=== PATIENT | female | born 1990 | race Caucasian/White ===

== ENCOUNTER → 2022-06-28 15:39 | Outpatient (CLI) | payer OTHER, SELFPAY ==
--- NOTE | 2022-06-28 15:49 | DI.CT.S_ITS ---
PROCEDURE: CT HEAD/BRAIN WO CON INDICATIONS: Explosive headache w/ orgasms x 1 week TECHNIQUE: Noncontrast 4.5 mm thick angled axial sections acquired from the foramen magnum to the vertex, with coronal and sagittal reformats. For radiation dose reduction, the following was used: automated exposure control, adjustment of mA and/or kV according to patient size. COMPARISON: None. FINDINGS: Image quality: Excellent. CSF spaces: Basal cisterns are patent. No extra-axial fluid collections. Ventricles are normal in size and shape. Brain: No midline shift. No intracranial masses or hemorrhage. Peralta-white matter interface is normal. Skull and face: Calvarium and visualized facial bones are intact, without suspicious lesions. Sinuses: Visualized sinuses and mastoids are clear. IMPRESSION: No acute intracranial hemorrhage is seen. No acute intracranial process is seen. In this patient with this given history, please consider a follow-up MR angiogram to evaluate for intracranial aneurysm (assuming that there is no contraindication). Dictated by: Patricio Walton M.D. on 06/28/2022 at 15:03 Approved by: Patricio Walton M.D. on 06/28/2022 at 15:04
== END ==
PROVIDERS: PCP Physician Assistant; Referring Provider Physician Assistant; Visit Provider Physician Assistant
DX: G44.82 Headache associated with sexual activity (principal)
CPT/HCPCS: 70450

== ENCOUNTER → 2022-07-14 12:35 | Outpatient (CLI) | payer OTHER, SELFPAY ==
--- NOTE | 2022-07-14 12:36 | DI.MRI.S_ITS ---
PROCEDURE: MR ANGIO HEAD WO CON INDICATIONS: new onset explosive headache TECHNIQUE: Noncontrast axial 3-D [id number] MR angiogram, with 3-dimensional maximum intensity projection (MIP) reformats COMPARISON: None. FINDINGS: Image quality: Excellent. Anterior circulation: Intracranial internal carotid arteries demonstrate normal size and intraluminal flow signal. The flow within the paired anterior cerebral arteries is normal and symmetric. The flow within the middle cerebral arteries is normal and symmetric. The anterior communicating artery is seen. No stenoses, occlusions, or aneurysms. Posterior circulation: Visualized portions of the vertebral arteries demonstrate normal caliber, and join to form a normal appearing basilar artery. The flow within the posterior cerebral arteries is normal and symmetric. No stenoses, occlusions, or aneurysms. IMPRESSION: Normal MR angiogram of the brain Approved by: Devin Colon M.D. on 07/14/2022 at 13:29
== END ==
PROVIDERS: PCP Physician Assistant; Referring Provider Physician Assistant; Visit Provider Physician Assistant
DX: G44.82 Headache associated with sexual activity (principal); Z82.0 Family history of epilepsy and other diseases of the nervous system
CPT/HCPCS: 70544

== ENCOUNTER → 2023-09-13 13:34 | Outpatient (CLI) | payer OTHER, SELFPAY ==
[2023-09-13 19:13] LABS: Add Manual Diff / Slide Review NO; Basophils Absolute Auto 100 /uL (0-100); Basophils Percent Auto 0.9 % (0-2); Eosinophils Absolute Auto 300 /uL (0-450); Hematocrit 40.3 % (36-46); Hemoglobin 14.2 g/dL (12.0-16.0); Lymphocytes Absolute Auto 2800 /uL (1100-4500); Lymphocytes Percent Auto 33.1 % (25-40); Mean Corpuscular HGB Conc 35.2 % (30-36); Mean Corpuscular Hemoglobin 32.6 PG (26-34); Mean Corpuscular Volume 92.5 fL (80-100); Monocytes Absolute Auto 800 /uL (0-900); Monocytes Percent Auto 8.9 % (3-14); Neutrophils Absolute Auto 4600 /uL (1500-7000); Neutrophils Percent Auto 54.1 % (50-75); Platelet Count 366 X10^3/uL (150-400); Red Blood Cell Count 4.35 X10^6/uL (4.0-5.2); Red Cell Distribution Width 12.3 % (11.6-14.8); White Blood Cell Count 8.5 X10^3/uL (4.5-11.0)
[2023-09-13 19:42] LABS: Alanine Aminotransferase 16 IU/L (<35); Albumin 4.1 g/dL (3.5-5.0); Albumin Globulin Ratio 1.5 (1.0-2.8); Alkaline Phosphatase 56 U/L (38-126); Aspartate Aminotransferase 25 IU/L (14-36); BUN Creatinine Ratio 21.1 (6-22); Bilirubin Total 0.5 mg/dL (0.2-1.3); Blood Urea Nitrogen 12 mg/dL (7-17); Calcium 9.4 mg/dL (8.4-10.2); Carbon Dioxide 26 mmol/L (22-32); Chloride 105 mmol/L (98-107); Estimated Glomerular Filt Rate > 60 mL/min (>60); Globulin 2.7 g/dL (1.7-4.1); Glucose 104 mg/dL (70-100); HEMOLYSIS < 15 (0-50); Potassium 4.3 mmol/L (3.4-5.1); Sodium 139 mmol/L (137-145); Total Protein 6.8 g/dL (6.3-8.2)
[2023-09-13 20:13] LABS: TSH w/ Reflex to FT4 1.09 uIU/mL (0.47-4.68)
[2023-09-14 16:25] LABS: Hepatitis B Surface Antigen NEGATIVE s/c (NEGATIVE)
[2023-09-14 16:39] LABS: HIV 1 & 2 Ab/Ag 4th Gen Combo NEGATIVE (NEGATIVE); Hep C Virus Ab w/Reflex Quant NEGATIVE s/c (NEGATIVE)
[2023-09-15 03:37] LABS: RPR Screen Non Reactive (Non Reactive)
== END ==
PROVIDERS: PCP Physician Assistant; Visit Provider Physician Assistant
DX: Z11.3 Encounter for screening for infections with a predominantly sexual mode of transmission (principal); F41.9 Anxiety disorder, unspecified; Z86.59 Personal history of other mental and behavioral disorders
CPT/HCPCS: 80053; 84443; 85025; 86592; 86803; 87340; 87389

== ENCOUNTER → 2024-01-28 09:33 | Outpatient (CLI) | payer OTHER, MEDICAID, SELFPAY | PROVIDERS: PCP Physician Assistant; Visit Provider Physician Assistant | DX: R35.0 Frequency of micturition (principal) | CPT/HCPCS: 87086 ==

== ENCOUNTER 2024-12-12 13:45 | Outpatient (RCR) | payer OTHER, SELFPAY ==
--- NOTE | 2024-10-08 13:35 | PT.OIE ---
Current Diagnoses Pelvic muscle wasting (10/08/24) Other female genital prolapse (10/08/24) Encounter for routine follow-up (10/08/24) Past Medical History (Last Updated 06/29/22 @ 18:33 by Erika Arreola) Abnormal Pap smear of cervix (~2008) Anxiety (~2002) Chicken pox (~1991) Depression (~2002) History of bipolar disorder History of bulimia Past Surgical History History of third molar tooth extraction Visit Care Team Role Provider Type Zohreh Mathew PA-C Attending Provider Advanced Gse Mechanic Family Provider Primary Care Provider Referring Provider Specialty: Medical Address: [address] [place] [address], [id number] Email: [email or web address] Physical Therapy Initial Evaluation PT-OP-A Visit Information Start: 10/08/24 08:54 Freq: Status: Active Protocol: Document 10/08/24 13:51 [facility] (Rec: 10/08/24 14:15 [facility] [id number]) Out-Patient Physical Therapy Visit Information Visit Information Visit Type Initial Evaluation Visit Start Time 13:50 Visit Stop Time 14:30 Visit Number 1 PT-OP-B Current Condition Start: 10/08/24 08:54 Freq: Status: Active Protocol: Document 10/08/24 13:45 [facility] (Rec: 10/08/24 14:15 [facility] [id number]) Current Condition History of Current Condition Onset Date after the of her baby 6 weeks ago Current Complaints pelvic heaviness and pressure that is worse with activity History of Current Condition 6 weeks post , pt reports she started feeling symptoms of pelvic pressure and heaviness at 2 weeks post . She reports her baby had shoulder dystocia and middle school reading teacher had to reach in during to assist and this did cause difficulty with delivery . Pt notes she did tear however it was felt she did not require stitches. With activity if she goes up hill with stroller she is aware of heaviness and if she wears her baby in a front pack there is increased heaviness. Vania reports she did feel pelvic pressure at the end of her Treatment Goals Patient/Caregiver Goals Treatment goals include learning what exercises are safe to do that won't create downward pressure and decreasing complaints of pelvic pressure and heaviness. Vania would also like to prevent any further prolapse PT-OP-I Pelvic Floor Start: 10/08/24 08:54 Freq: Status: Active Protocol: Document 10/08/24 13:45 [facility] BEDS AT THE [facility] (Rec: 10/08/24 17:12 COUNTS INCLUDE 234 BEDS AT THE [facility] [id number]) Pelvic Floor Assessment Urine Pelvic Floor Surgery No: vagianl with shoulder dystocia Urinary Symptoms Falling Out Feeling/Heavy Pelvic Clock Pelvic Clock 12-3 Atrophy Pelvic Clock 3-6 Atrophy Pelvic Clock 6-9 Atrophy Pelvic Clock 9-12 Atrophy Pelvic Clock Other atrophy and swelling noted primarily over the rectum Prolapse Rectocele Grade 1 Perineal Descent Resting Present Contraction Ability Voluntary Contraction Weak Manual Muscle Testing Left 2 Manual Muscle Testing Right 2 Manual Muscle Testing Anterior 1 Manual Muscle Testing Posterior 2 Muscle Endurance (Seconds) 4 Comments Pelvic Floor Comments scar tissue is noted over the perineum more so on the left side and it is tender to palpation over the perineum, when pt contracts pelvic floor visually I can see the left side anchored down a bit as compared to the right side PT-OP-J Posture/Palpation/Skin Start: 10/08/24 08:54 Freq: Status: Active Protocol: Document 10/08/24 13:45 COUNTS INCLUDE 234 BEDS AT THE [facility] (Rec: 10/09/24 13:32 COUNTS INCLUDE 234 BEDS AT THE [facility] [id number]) Palpation Assessment Location perineum Palpation Findings Soft Tissue Tightness Palpation Details scar tissue restrictions PT-OP-Q Treatments Start: 10/08/24 08:54 Freq: Status: Active Protocol: Document 10/08/24 17:03 COUNTS INCLUDE 234 BEDS AT THE [facility] (Rec: 10/08/24 17:05 COUNTS INCLUDE 234 BEDS AT THE [facility] [id number]) Therapeutic Exercises Supine Exercises pelvic floor long holds Reps/Minutes 5 second hold and 10 second rest Comments pt to start with 1 time per day and work up to 2-3 times per day Self-Care/Home Management Treatment Education Patient Education Home Exercise Program,Pain Management Other Education pt was educated on pelvic decompression using a wedge and this felt good to her, she was educated that she could do her exercises in this position pt was given a size xs dilator for self scar tissue mobilization as the left side of the perineum is adhered some and pulling to the left PT-OP-T Assessment and Plan Start: 10/08/24 08:54 Freq: Status: Active Protocol: Document 10/08/24 13:45 COUNTS INCLUDE 234 BEDS AT THE [facility] (Rec: 10/08/24 17:36 COUNTS INCLUDE 234 BEDS AT THE [facility] [id number]) Physical Therapy Assessment Rehab Potential Rehabilitation Potential Excellent Evaluation Complexity Number of Personal Factors/Comorbidities 0 Number of Body Systems Impaired 1-2 Clinical Presentation at Evaluation Stable Impairments Impairments Activity Tolerance,Functional Activities,Pain,Soft Tissue Mobility,Strength Other Impairments pelvic pressure and heaviness Goals 3 Impairment Decreased endurance of the pelvic floor Short Term Goal (STG) Vania is able to sustain a pelvic floor contraction in supine x 10 seconds STG Duration 4 weeks Fdc Goal (LTG) Vania is able to sustain a pelvic floor contraction in standing x 5 seconds or better LTG Duration 12 weeks 2 Impairment pelvic floor weakness Fdc Goal (LTG) Vania presents with improved pelvic floor strength to 3/5 MMT or better for all miller of the levator ani LTG Duration 12 weeks 1 Impairment pt reports pelvic pressure and heaviness that increases as the day progresses and with pushing a stroller or walking with her baby in a carrier Material Handler Goal (LTG) Vania reports a overall reduction of pelvic pressure and heaviness LTG Duration 12 weeks Assessment Summary Assessment Nicolasa is a 34 year old female who is 6 weeks with complaints of pelvic pressure and heaviness. She notes her baby had shoulder dystocia and needed manual assist for delivery. Approx 2 weeks post Vania started feeling pelvic pressure and heaviness. She notes symtoms are worse with activity and walking pusing a stroller. She also reports increased symptoms with carrying her baby in a front pack. She seeks PT for pelvic floor strengthening and would like to learn what is a safe activity level for her at this time With evaluation her skin appears well healed. There is tenderness to palpation over the perineum with some scaring noted on the left side. With pelvic floor contraction the left side of the perineum is anchored down with scar tissue . Vania would benefit from perineal scar tissue massage and she was given a size xs dilator to use to help with scar mobilization. With levator ani exam there is a 1st degree rectocele and atrophy especially over the posterior wall of the levator ani. She tests 2/5 MMT for the posterior and lateral miller and 1/5 MMT for the anterior wall of the levator ani. She is limited with endurance of a few seconds only. Vania is a good candidate for Pelvic floor PT and our goal will be to decrease scar tissue and improve both strength and endurance of the pelvic floor. Physical Therapy Plan Frequency and Duration Frequency of Treatment 1x/Week Duration of treatment (weeks) 12 Plan of Care Start Date 10/08/24 Plan of Care End Date 12/31/24 Therapeutic Interventions Therapeutic Interventions Home Exercise Program,Manual Therapy,Neuromuscular Re- education,Patient/Caregiver Education,Self-Care/Home Management,Soft Tissue Mobilization,Therapeutic Exercises Modalities Biofeedback
--- NOTE | 2024-10-08 13:35 | PT.OPPOC ---
Physical, Occupational & Speech Therapy At [facility] Current Diagnoses Pelvic muscle wasting (10/08/24) Other female genital prolapse (10/08/24) Encounter for routine follow-up (10/08/24) Visit Care Team Role Provider Type Zohreh Mathew PA-C Attending Provider Advanced [place] Operator Family Provider Primary Care Provider Referring Provider Specialty: Medical Address: [address] [place] [address], [id number] Email: [email or web address] Plan Of Care PT-OP-B Current Condition Start: 10/08/24 08:54 Freq: Status: Active Protocol: Document 10/08/24 13:45 [facility] (Rec: 10/08/24 14:15 [facility] [id number]) Current Condition History of Current Condition Onset Date after the of her baby 6 weeks ago Current Complaints pelvic heaviness and pressure that is worse with activity History of Current Condition 6 weeks post , pt reports she started feeling symptoms of pelvic pressure and heaviness at 2 weeks post . She reports her baby had shoulder dystocia and mid level project manager had to reach in during to assist and this did cause difficulty with delivery . Pt notes she did tear however it was felt she did not require stitches. With activity if she goes up hill with stroller she is aware of heaviness and if she wears her baby in a front pack there is increased heaviness. Vania reports she did feel pelvic pressure at the end of her Treatment Goals Patient/Caregiver Goals Treatment goals include learning what exercises are safe to do that won't create downward pressure and decreasing complaints of pelvic pressure and heaviness. Vania would also like to prevent any further prolapse PT-OP-T Assessment and Plan Start: 10/08/24 08:54 Freq: Status: Active Protocol: Document 10/08/24 13:45 [facility] (Rec: 10/08/24 17:36 [facility] [id number]) Physical Therapy Assessment Rehab Potential Rehabilitation Potential Excellent Evaluation Complexity Number of Personal Factors/Comorbidities 0 Number of Body Systems Impaired 1-2 Clinical Presentation at Evaluation Stable Impairments Impairments Activity Tolerance,Functional Activities,Pain,Soft Tissue Mobility,Strength Other Impairments pelvic pressure and heaviness Goals 3 Impairment Decreased endurance of the pelvic floor Short Term Goal (STG) Vania is able to sustain a pelvic floor contraction in supine x 10 seconds STG Duration 4 weeks Installation Specialist Goal (LTG) Vania is able to sustain a pelvic floor contraction in standing x 5 seconds or better LTG Duration 12 weeks 2 Impairment pelvic floor weakness Long-Term Goal (LTG) Vania presents with improved pelvic floor strength to 3/5 MMT or better for all miller of the levator ani LTG Duration 12 weeks 1 Impairment pt reports pelvic pressure and heaviness that increases as the day progresses and with pushing a stroller or walking with her baby in a carrier Installation Specialist Goal (LTG) Vania reports a overall reduction of pelvic pressure and heaviness LTG Duration 12 weeks Assessment Summary Assessment Nicolasa is a 34 year old female who is 6 weeks with complaints of pelvic pressure and heaviness. She notes her baby had shoulder dystocia and needed manual assist for delivery. Approx 2 weeks post Vania started feeling pelvic pressure and heaviness. She notes symptoms are worse with activity and walking pushing a stroller. She also reports increased symptoms with carrying her baby in a front pack. She seeks PT for pelvic floor strengthening and would like to learn what is a safe activity level for her at this time With evaluation her skin appears well healed. There is tenderness to palpation over the perineum with some scaring noted on the left side. With pelvic floor contraction the left side of the perineum is anchored down with scar tissue . Vania would benefit from perineal scar tissue massage and she was given a size xs dilator to use to help with scar mobilization. With levator ani exam there is a 1st degree rectocele and atrophy especially over the posterior wall of the levator ani. She tests 2/5 MMT for the posterior and lateral miller and 1/5 MMT for the anterior wall of the levator ani. She is limited with endurance of a few seconds only. Vania is a good candidate for Pelvic floor PT and our goal will be to decrease scar tissue and improve both strength and endurance of the pelvic floor. Physical Therapy Plan Frequency and Duration Frequency of Treatment 1x/Week Duration of treatment (weeks) 12 Plan of Care Start Date 10/08/24 Plan of Care End Date 12/31/24 Therapeutic Interventions Therapeutic Interventions Home Exercise Program,Manual Therapy,Neuromuscular Re- education,Patient/Caregiver Education,Self-Care/Home Management,Soft Tissue Mobilization,Therapeutic Exercises Modalities Biofeedback Plan of Care Dates Plan of Care Start Date 10/08/24 Plan of Care End Date 12/31/24 Electronically Signed by: Shawanda Doe, PT 10/09/24 0118 If you are in agreement with this Plan of Care, please return a signed and dated copy. I have reviewed this Plan of Care and certify that the skilled therapy services above are required to meet the patient?s needs. Physician Signature Date Printed Name and Credentials Clinical Instructor Signature Printed Name and Credentials
--- NOTE | 2024-11-12 13:35 | PT.OTN ---
Current Diagnoses Pelvic muscle wasting (11/12/24) Other female genital prolapse (11/12/24) Encounter for routine follow-up (11/12/24) Physical Therapy Treatment Note PT-OP-A Visit Information Start: 10/08/24 08:54 Freq: Status: Active Protocol: Document 11/12/24 11:43 [facility] (Rec: 11/12/24 12:26 [facility] [id number]) Out-Patient Physical Therapy Visit Information Visit Information Visit Type Treatment Note Visit Start Time 11:40 Visit Stop Time 12:20 Visit Number 2 PT-OP-B Current Condition Start: 10/08/24 08:54 Freq: Status: Active Protocol: Document 10/08/24 13:45 [facility] (Rec: 10/08/24 14:15 [facility] [id number]) Current Condition History of Current Condition Onset Date after the of her baby 6 weeks ago Current Complaints pelvic heaviness and pressure that is worse with activity History of Current Condition 6 weeks post , pt reports she started feeling symptoms of pelvic pressure and heaviness at 2 weeks post . She reports her baby had shoulder dystocia and ice cutter had to reach in during birith to assist and this did cause difficulty with delivery . Pt notes she did tear however it was felt she did not require stitches. With activity if she goes up hill with stroller she is aware of heaviness and if she wears her baby in a front pack there is increased heaviness. Vania reports she did feel pelvic pressure at the end of her Treatment Goals Patient/Caregiver Goals Treatment goals include learning what exercises are safe to do that won't create downward pressure and decreasing complaints of pelvic pressure and heaviness. Vania would also like to prevent any further prolapse PT-OP-C Subjective Start: 10/08/24 08:54 Freq: Status: Active Protocol: Document 11/12/24 11:43 [facility] (Rec: 11/12/24 12:26 [facility] [id number]) OP-PT Subjective Patient Comments Patient Comments pt notes she is working on fitting in her pelvic floor and she has been using her finger instead of the wand and she has felt release of the scar tissue She hasn't felt as much heaviness and she has been doing a lot of yoga Patient Reported Progress Improving PT-OP-I Pelvic Floor Start: 10/08/24 08:54 Freq: Status: Active Protocol: Document 10/08/24 13:45 [facility] (Rec: 10/08/24 17:12 [facility] [id number]) Pelvic Floor Assessment Urine Pelvic Floor Surgery No: vagianl with shoulder dystocia Urinary Symptoms Falling Out Feeling/Heavy Pelvic Clock Pelvic Clock 12-3 Atrophy Pelvic Clock 3-6 Atrophy Pelvic Clock 6-9 Atrophy Pelvic Clock 9-12 Atrophy Pelvic Clock Other atrophy and swelling noted primarily over the rectum Prolapse Rectocele Grade 1 Perineal Descent Resting Present Contraction Ability Voluntary Contraction Weak Manual Muscle Testing Left 2 Manual Muscle Testing Right 2 Manual Muscle Testing Anterior 1 Manual Muscle Testing Posterior 2 Muscle Endurance (Seconds) 4 Comments Pelvic Floor Comments scar tissue is noted over the perineum more so on the left side and it is tender to palpation over the perineum, when pt contracts pelvic floor visually I can see the left side anchored down a bit as compared to the right side PT-OP-J Posture/Palpation/Skin Start: 10/08/24 08:54 Freq: Status: Active Protocol: Document 10/08/24 13:45 [facility] (Rec: 10/09/24 13:32 [facility] [id number]) Palpation Assessment Location perineum Palpation Findings Soft Tissue Tightness Palpation Details scar tissue restrictions PT-OP-Q Treatments Start: 10/08/24 08:54 Freq: Status: Active Protocol: Document 11/12/24 11:43 [facility] (Rec: 11/12/24 12:26 [facility] [id number]) Therapeutic Exercises Supine Exercises pelvic floor long holds Supine Exercise Name 14.8 and 41.6 Comments able to relax to baseline Sitting Exercises seated pelvic floor isolations Reps/Minutes x 5 sec holds Standing Exercises pelvic floor contractions Standing Exercise Name verage 6 and max of 14.1 uv Reps/Minutes x 10 reps Self-Care/Home Management Treatment Education Patient Education Home Exercise Program,Pain Management Other Education pt educated on progression of HEP and poise impressas for bladder supports. Vania would like to return to running and we discussed progression from 1 mile initially, she is able to walk x 4 miles. PT-OP-T Assessment and Plan Start: 10/08/24 08:54 Freq: Status: Active Protocol: Document 11/12/24 11:43 [facility] (Rec: 11/12/24 12:26 [facility] [id number]) Physical Therapy Assessment Assessment Summary Assessment Vania is making good progress with pelvic floor recruitment. She is feeling decreased tension from the perineum and is demonstrating improved contraction intensity as well as pelvic floor endurance. She would like to return to running and we did discuss options of bladder supports for her today. We discussed slowly returning to short distance runs Physical Therapy Plan Frequency and Duration Frequency of Treatment 1x/Week Duration of treatment (weeks) 12 Plan of Care Start Date 10/08/24 Plan of Care End Date 12/31/24 Next Visit Focus/Plan Next Note Type Treatment Note Next Visit Plan continue working on pelvic floor progression, begin TA activation and check in with how the perineum is feeling. PT would like to try running so check in on how a short distance went
--- NOTE | 2024-12-12 14:37 | PT.OTN ---
Current Diagnoses Pelvic muscle wasting (12/12/24) Other female genital prolapse (12/12/24) Encounter for routine follow-up (12/12/24) Physical Therapy Treatment Note PT-OP-A Visit Information Start: 10/08/24 08:54 Freq: Status: Active Protocol: Document 12/12/24 13:53 [facility] (Rec: 12/12/24 14:12 [facility] [id number]) Out-Patient Physical Therapy Visit Information Visit Information Visit Type Treatment Note Visit Note [place] Visit Start Time 13:55 Visit Stop Time 14:30 Visit Number 3 PT-OP-B Current Condition Start: 10/08/24 08:54 Freq: Status: Active Protocol: Document 10/08/24 13:45 [facility] (Rec: 10/08/24 14:15 [facility] [id number]) Current Condition History of Current Condition Onset Date after the of her baby 6 weeks ago Current Complaints pelvic heaviness and pressure that is worse with activity History of Current 6 weeks post , Condition pt reports she started feeling symptoms of pelvic pressure and heaviness at 2 weeks post . She reports her baby had shoulder dystocia and market research executive had to reach in during birith to assist and this did cause difficulty with delivery. Pt notes she did tear however it was felt she did not require stitches. With activity if she goes up hill with stroller she is aware of heaviness and if she wears her baby in a front pack there is increased heaviness. Vania reports she did feel pelvic pressure at the end of her Treatment Goals Patient/Caregiver Treatment goals include learning what exercises are Goals safe to do that won't create downward pressure and decreasing complaints of pelvic pressure and heaviness. Vania would also like to prevent any further prolapse PT-OP-C Subjective Start: 10/08/24 08:54 Freq: Status: Active Protocol: Document 12/12/24 13:53 [facility] (Rec: 12/12/24 14:12 [facility] [id number]) OP-PT Subjective Patient Comments Patient Comments pt did get the poise impressas and did feel they helped she hasn't started running yet but will try this weekend. She hasn't been feeling the pelvic pressure with yoga or with walking. PT-OP-I Pelvic Floor Start: 10/08/24 08:54 Freq: Status: Active Protocol: Document 10/08/24 13:45 [facility] (Rec: 10/08/24 17:12 [facility] [id number]) Pelvic Floor Assessment Urine Pelvic Floor Surgery No: vagianl with shoulder dystocia Urinary Symptoms Falling Out Feeling/Heavy Pelvic Clock Pelvic Clock 12-3 Atrophy Pelvic Clock 3-6 Atrophy Pelvic Clock 6-9 Atrophy Pelvic Clock 9-12 Atrophy Pelvic Clock Other atrophy and swelling noted primarily over the rectum Prolapse Rectocele Grade 1 Perineal Descent Resting Present Contraction Ability Voluntary Weak Contraction Manual Muscle 2 Testing Left Manual Muscle 2 Testing Right Manual Muscle 1 Testing Anterior Manual Muscle 2 Testing Posterior Muscle Endurance ( 4 Seconds) Comments Pelvic Floor scar tissue is noted over the perineum more so on the Comments left side and it is tender to palpation over the perineum, when pt contracts pelvic floor visually I can see the left side anchored down a bit as compared to the right side PT-OP-J Posture/Palpation/Skin Start: 10/08/24 08:54 Freq: Status: Active Protocol: Document 10/08/24 13:45 [facility] (Rec: 10/09/24 13:32 [facility] [id number]) Palpation Assessment Location perineum Palpation Findings Soft Tissue Tightness Palpation Details scar tissue restrictions PT-OP-Q Treatments Start: 10/08/24 08:54 Freq: Status: Active Protocol: Document 12/12/24 13:53 [facility] (Rec: 12/12/24 14:12 [facility] [id number]) Therapeutic Exercises Supine Exercises templates for coordination and eccentric control Reps/Minutes x 5 min pelvic floor long holds Reps/Minutes 10 reps holding 10 seconds and relaxing 10 seconds Comments 20uv and 54 max Sidelying Exercises clam shells Reps/Minutes x 10 reps Comments pt to work up to 3 sets of 10 when she is able Self-Care/Home Management Treatment Education Patient Education Home Exercise Program Caregiver Education added in clam shells and elevator floors for coordination and eccentric control, discussion of poise impressas for return to running PT-OP-T Assessment and Plan Start: 10/08/24 08:54 Freq: Status: Active Protocol: Document 12/12/24 13:53 [facility] (Rec: 12/12/24 14:12 [facility] [id number]) Physical Therapy Assessment Goals 3 Impairment Decreased endurance of the pelvic floor Short Term Goal (STG Vania is able to sustain a pelvic floor contraction in ) supine x 10 seconds goal met STG Duration 4 weeks Usp Goal (LTG) Vania is able to sustain a pelvic floor contraction in standing x 5 seconds or better goal met LTG Duration 12 weeks 2 Impairment pelvic floor weakness Usp Goal (LTG) Vania presents with improved pelvic floor strength to 3 /5 MMT or better for all miller of the levator ani goal met LTG Duration 12 weeks 1 Impairment pt reports pelvic pressure and heaviness that increases as the day progresses and with pushing a stroller or walking with her baby in a carrier Usp Goal (LTG) Vania reports a overall reduction of pelvic pressure and heaviness goal met LTG Duration 12 weeks Assessment Summary Assessment Vania is doing much better overall and demonstrating improved pelvic floor strength as well as endurance. she is not feeling the pelvic pressure and heaviness now like she was. She is able to walk and do yoga without any c/o pressure. She has not yet returned to running but plans to soon. At this point she is Ind with her HEP and will be discharged to a [facility] Physical Therapy Plan Discharge Physical Therapy Discharge Reasons Goals Met Discharge Comments DC to Independent [facility]
== END 2024-12-13 14:48 | disposition home or self-care (01) ==
LOC: PHYS 13:45
PROVIDERS: Family Provider Physician Assistant; PCP Physician Assistant; Referring Provider Physician Assistant; Visit Provider Physician Assistant
DX: Z39.2 Encounter for routine postpartum follow-up (principal); N81.89 Other female genital prolapse; N81.84 Pelvic muscle wasting
CPT/HCPCS: 97110; 97161; 97535